=== PATIENT | female | born 1975 | race Caucasian/White ===

== ENCOUNTER 2017-02-15 11:20 | Day surgery (SDC) | payer OTHER ==
[~2017-02-15 11:20] MED LIST: ACETAMINOPHEN 1,000 MG/100 ML BTL IV ONE; FAMOTIDINE 20MG TABLET PO ONE; MECLIZINE 25 MG TABLET PO ONE; METOCLOPRAMIDE 10 MG TABLET PO ONE
[2017-02-15] MEDS ORDERED: PROPOFOL 10 MG/ML VIAL IV ONE (14:00)
[2017-02-15] MEDS ORDERED: SEVOFLURANE 250 ML INH ONE (14:00)
[2017-02-15] MEDS ORDERED: KETOROLAC 30 MG/ML VIAL IVP ONE (14:00)
[2017-02-15] MEDS ORDERED: LIDOCAINE 2% MDV (20MG/ML) 20ML VIAL IV ONE (14:00)
[2017-02-15] MEDS ORDERED: ONDANSETRON HCL IV 4 MG/2 ML VIAL IVP ONE (14:00)
[2017-02-15] MEDS ORDERED: FENTANYL PF 100MCG/2ML VIAL IV ONE (14:00)
[2017-02-15] MEDS ORDERED: MIDAZOLAM HCL 2MG/2ML VIAL IV ONE (14:00)
[2017-02-15] MEDS ORDERED: BUPIVACAINE 0.25% W/EPI MPF 30ML VIAL IVP ONE (14:00)
--- NOTE | 2017-02-20 09:48 | Operative Note ---
DATE OF SURGERY: 02/15/2017 Surgeon: Nabil Cross DO Referring physician: Linda Garland MD PREOPERATIVE DIAGNOSIS: Torn medial meniscus of the right knee. POSTOPERATIVE DIAGNOSIS: Torn medial meniscus of the right knee. OPERATION: Arthroscopic partial medial meniscectomy of the right knee. Anesthesia: General. PROCEDURE: This 41-year-old female was taken to the operating room and placed in the supine position on the operating room table. General anesthetic was administered and the right lower extremity was elevated. It was exsanguinated and the tourniquet inflated to 300 mmHg. Arthroscopic knee kimball applied. The right knee prepped with Hibiclens and draped in the usual sterile fashion. An inferior lateral portal was established with a 4 mm arthroscope and initial evaluation of the joint demonstrated normal appearance of the suprapatellar pouch. The patient's articular cartilage at the patellofemoral joint appeared pristine. Through an inferior medial portal, we probed the articular cartilage and it did not demonstrate any abnormality. The medial compartment was entered and the articular cartilage of the medial compartment appeared normal. She had a complex tear of the posterior horn of the medial meniscus with horizontal cleavage components and the tear extended from near the posterior root around to approximately the 3 o'clock position. The basket forceps and rotating shaver were used to resect unstable fragments of the meniscus. We resected back to the apex and then tapered both medially and laterally to form a smooth contoured surface. It was reprobed and confirmed to be stable. The intracondylar notch was examined and found to be normal. The lateral compartment was entered and probing of the articular cartilage and meniscus in the lateral compartment did not reveal any pathology. The joint was then copiously irrigated and suctioned. The instruments were removed. The portals were infiltrated with 0.25% Marcaine with epinephrine. Sterile dressings applied. The tourniquet and knee kimball were released and the patient taken to the recovery room in satisfactory condition. GROSS PATHOLOGY: This patient demonstrated a complex tear of the posterior horn of the medial meniscus. The remainder of the knee appeared normal. [facility]
== END 2017-02-15 15:30 | disposition home or self-care (01) ==
LOC: SUR 11:20
PROVIDERS: ATTEND Orthopaedic Surgery
DX: S83.241A Other tear of medial meniscus, current injury, right knee, initial encounter (principal); J45.909 Unspecified asthma, uncomplicated
CPT/HCPCS: 29881; 01400; J1885; J2405; J3010